=== PATIENT | female | born 1960 | race Caucasian/White ===

== ENCOUNTER 2019-09-12 10:46 | Inpatient (IN) ==
[2019-09-12] MEDS ORDERED: IOPAMIDOL 100 ML BOTTLE IV ONE (10:47)
[2019-09-12 11:44] LABS: POC Blood Urea Nitrogen 11 mg/dl (6-20); POC CO2 25 mmol/L (22-30); POC Calcium, Ionized 1.18 mmol/L (1.16-1.32); POC Chloride 104 mmol/L (96-108); POC Creatinine 0.9 mg/dl (0.6-1.1); POC Glucose, Random 97 mg/dL (70-105); POC Sodium 139 mmol/L (133-145)
[2019-09-12 12:00] LABS: Appearance,Urine CLEAR; Bacteria,Urine FEW /hpf (0); Bilirubin,Urine NEG (NEG); Color,Urine YELLOW; Culture Indicated,Urine YES; Glucose,Urine (UA) NEGATIVE (NEG); Ketones,Urine NEG (NEG); Leukocyte Esterase,Urine NEG /uL (NEG); Mucus,Urine MANY /hpf (0); Nitrate,Urine NEG (NEG); Protein,Urine 30 mg/dL (NEG); Specific Gravity,Urine 1.021 (1.000-1.035); Urine Blood 0.2 mg/dL (<0.03); Urine Hyaline Cast 35 /lpf (0-2); Urine RBC 13 /hpf (0-1); Urine Squamous Epithelial Cell 1 /hpf (0-4); Urine WBC 1 /hpf (0-4); Urobilinogen,Urine NEG (NEG)
[2019-09-12 12:17] LABS: Basophils # (Auto) 0.1 K/mcL (0.0-0.3); Basophils % (Auto) 1.7 % (0.0-2.0); Eosinophils # (Auto) 0.1 K/mcL (0.0-0.7); Eosinophils % (Auto) 1.3 % (0.0-7.0); Granulocytes % (Auto) 55.6 % (38.0-78.0); Hematocrit 41.5 % (36.0-48.0); Hemoglobin 13.7 g/dL (12.0-15.0); Lymphocytes # (Auto) 2.3 K/mcL (1.5-4.8); Lymphocytes % (Auto) 34.1 % (15.5-49.0); Mean Cell Volume 98.6 fL (80.0-100.0); Mean Corpuscular HGB Conc 33.1 g/dL (31.0-36.0); Mean Platelet Volume 9.1 fL (7.4-10.4); Monocytes # (Auto) 0.5 K/mcL (0.1-0.9); Monocytes % (Auto) 7.3 % (1.0-12.0); Platelet Count 267 K/mcL (140-440); RBC 4.21 M/mcL (4.00-5.20); Red Cell Distribution Width 13.2 % (11.5-14.5); WBC 6.7 K/mcL (4.5-11.0)
[2019-09-12 12:34] LABS: ALT/SGPT 12 U/l (0-40); AST/SGOT 14 U/l (0-37); Albumin/Globulin Ratio 1.6 (1.0-2.3); Alkaline Phosphatase 57 U/L (39-117); Bilirubin,Total 0.3 mg/dL (0.0-1.0); Blood Urea Nitrogen 12 mg/dl (6-20); Calcium 9.3 mg/dl (8.6-10.4); Carbon Dioxide 23 mmol/L (22-30); Chloride 103 mmol/L (96-108); Globulin 2.5 gm/dL (2.2-3.7); Glomerular Filtration Rate 70; Glucose 100 mg/dL (70-105)
--- NOTE | 2019-09-12 14:14 | Cat Scan Report ---
History: Abdominal pain in the right lower quadrant, status post prior hysterectomy and partial colon resection TECHNIQUE: The patient was imaged following oral and intravenous contrast scanning from the diaphragm to the symphysis pubis during the portal venous phase. Delayed excretory phase images were acquired of the upper abdomen. Sagittal and coronal reformats were created. The radiation exposure was limited using dose reduction technology. FINDINGS: There are a few scattered cysts in the liver. They measure up to 1 cm in size. No solid mass is seen in the liver. The gallbladder and bile ducts are normal. Spleen is normal in size and homogeneous. The pancreas is There are couple simple cysts in the right kidney. The largest is located centrally and measures 1.6 cm. No solid mass or hydronephrosis are present in either kidney. The aorta is mildly ectatic in the distal segment and there is atherosclerotic disease in the aorta and iliac arteries. Most of the colon has been surgically resected. The small intestine has been anastomosed to the superior left side of the sigmoid colon. There is no evidence of small bowel obstruction. The anastomosis appears normal. There is a row surgical sutures around the stump of the sigmoid. There is a large amount stool in the proximal portion of sigmoid colon. There appears to be an annular constricting lesion in the distal sigmoid colon above the rectum causing narrowing of the lumen. Distal to the constriction the distal sigmoid and rectum contain a normal amount of stool. No adenopathy or ascites are present. Bone windows show no lytic or blastic lesion. There is arthritis in the facet joints in the L5-S1 level. Uterus and ovaries are surgically resected. Urinary bladder appears normal. Comparison with the prior CT done on 04/25/19 shows the narrowing of the lumen of the sigmoid colon is a new finding. The fecal impaction in the sigmoid is also new. IMPRESSION: Annular constricting lesion in the distal sigmoid colon, causing partial distal large bowel obstruction. This could be a colon cancer. Sigmoidoscopy is recommended for further evaluation. Maribell Grace was called with results Interpreted and Authenticated by: Eric Dale 09/12/19
--- NOTE | 2019-09-12 14:55 | Emergency Department Note ---
Abdominal Pain HPI - General Chief Complaint: Abdominal Pain Stated Complaint: Abdominal Pain, Neck Pain Time Seen by Provider: 09/12/19 11:09 Mode of arrival: EMS - History of Present Illness HPI Narrative: 58-year-old female presents with a weeklong history of right lower quadrant abdominal pain. She is been seen Pauline Sherman and they have tried to order a CT outpatient but have not gotten insurance approval. States she is continuing to get worse instead of better. No fever or chills. No nausea, vomiting, or diarrhea. No cough or cold symptoms. Unsure her last bowel movement. Patient is extremely poor historian and seems to not be able to remember a whole lot. Associated symptoms: Denies: nausea, vomiting, diarrhea, fever, chills - Related Data Home Medications Medication Instructions Recorded Confirmed DULoxetine [Cymbalta] 60 mg PO DAILY 02/03/16 09/12/19 Albuterol Sulfate [Ventolin] 1 puff INH Q4HP PRN 01/31/17 09/12/19 buPROPion [Wellbutrin Xl] 300 mg PO DAILY 01/31/17 09/12/19 Citalopram [Celexa] 40 mg PO HS 05/01/19 09/12/19 Rosuvastatin Calcium [Crestor] 10 mg PO DAILY 05/01/19 09/12/19 levETIRAcetam [Keppra] 500 mg PO BID 05/01/19 09/12/19 Previous Rx's Medication Instructions Recorded ipratropium-albuterol 0.5 mg-3 3 ml INHALATION Q6H PRN #120 vials 05/06/15 mg(2.5 mg base)/3 mL nebulization soln Ondansetron [Zofran ODT] 4 mg SL Q4-6HP PRN #10 tablet 05/28/17 Allergies Allergy/AdvReac Type Severity Reaction Status Date / Time Penicillins Allergy Mild Vomiting Verified 03/05/18 10:43 acetaminophen [From Tylenol] AdvReac Vomiting Verified 03/05/18 10:43 codeine AdvReac Vomiting Verified 03/05/18 10:43 ibuprofen AdvReac Vomiting Verified 03/05/18 10:43 Review of Systems All systems ED: reviewed and negative except as stated. Abdominal Pain PMH - Past Medical History PMFSH Narrative: Patient is extremely poor historian and forgetful. Medical History Benzodiazepine (tranquilizer) overdose (Acute) Bite by animal (Acute) Cellulitis (Acute) Bronchitis (Acute) Medical history: Reports: arthritis, asthma, COPD, CVA, migraine, seizures, other (Lupus) Surgical history ED: Reports: other ("I only have 6 inches of colon left", can't elaborate) Psychiatric history: Reports: anxiety, depression, PTSD - Social History Smoking status: Current every day smoker Alcohol use: Reports: None Physical Exam Limitations: other (Forgetful) General appearance: alert Head: atraumatic, normocephalic Eye: Present: normal appearance. Absent: conjunctival injection ENT: Present: mucous membranes moist Chest: Present: symmetric chest wall rise Respiratory: Present: normal lung sounds bilaterally. Absent: respiratory distress, rales/crackles, accessory muscle use Cardiovascular: Present: regular rate, normal heart sounds Abdominal: Present: soft, tenderness (Right lower quadrant ), hypoactive bowel sounds. Absent: distention, guarding, rebound, mass Extremities: Present: normal inspection Back: Absent: CVA tenderness (R), CVA tenderness (L) Neurological: Present: alert, oriented X3 Psychiatric: Present: normal affect, normal mood Skin: Present: warm, dry, intact, normal color. Absent: rash, hives, cyanosis, diaphoresis Course Course Narrative: At 1440 I did speak with Chris Sherman. She would like us to call Dr. Romero who is on-call for GI as she is going to need scoped and she is unable to do so. At [address] did speak with Dr. Juarez. He would like us to admit the patient to observation if the hospitalist service is willing to accept her and control her pain and keep her on clear liquids and he will do a scope in the morning with enema prep only. (no need to be NPO) @ 1600 I did speak with hospitalist Dr. Larsen who agrees to accept this patient Vital Signs Temperature 98.1 F 09/12/19 10:47 Pulse Rate 84 09/12/19 10:47 Respiratory Rate 14 09/12/19 10:47 Blood Pressure 118/76 09/12/19 10:47 Pulse Oximetry (%) 95 09/12/19 10:47 Temperature 98.1 F 09/12/19 10:47 Pulse Rate 82 09/12/19 16:01 Respiratory Rate 17 09/12/19 16:01 Blood Pressure 100/89 09/12/19 16:01 Pulse Oximetry (%) 93 09/12/19 16:01 Abdominal Pain - Lab Data Lab results reviewed: Yes I reviewed the patient's lab results. Result diagrams: 09/12/19 11:28 09/12/19 11:28 Lab Results 09/12/19 09/12/19 09/12/19 Range/Units 11:00 11: 11:28 WBC 6.7 (4.5-11.0) K/mcL RBC 4.21 (4.00-5.20) M/mcL Hgb 13.7 (12.0-15.0) g/dL Hct 41.5 (36.0-48.0) % POC Hct 42.0 (36.0-48.0) % MCV 98.6 (80.0-100.0) fL MCH 32.6 (26.0-34.0) pg MCHC 33.1 (31.0-36.0) g/dL RDW 13.2 (11.5-14.5) % Plt Count 267 (140-440) K/mcL MPV 9.1 (7.4-10.4) fL Gran % 55.6 (38.0-78.0) % Lymph % (Auto) 34.1 (15.5-49.0) % [place] % (Auto) 7.3 (1.0-12.0) % Eos % (Auto) 1.3 (0.0-7.0) % Baso % (Auto) 1.7 (0.0-2.0) % Gran # 3.7 (1.8-8.0) K/mcL Lymph # (Auto) 2.3 (1.5-4.8) K/mcL [place] # (Auto) 0.5 (0.1-0.9) K/mcL Eos # (Auto) 0.1 (0.0-0.7) K/mcL Baso # (Auto) 0.1 (0.0-0.3) K/mcL POC Sodium 139 (133-145) mmol/L Sodium 138 (133-145) mmol/L POC Potassium 4.0 (3.3-5.1) mmol/L Potassium 4.0 (3.3-5.1) mmol/L POC Chloride 104 (96-108) mmol/L Chloride 103 (96-108) mmol/L Carbon Dioxide 23 (22-30) mmol/L POC Total CO2 25 (22-30) mmol/L Anion Gap 12.0 (8-16) POC BUN 11 (6-20) mg/dl BUN 12 (6-20) mg/dl Creatinine 0.9 (0.6-1.1) mg/dl POC Creatinine 0.9 (0.6-1.1) mg/dl GFR Calculation 70 Glucose 100 (70-105) mg/dL POC Glucose 97 (70-105) mg/dL Calcium 9.3 (8.6-10.4) mg/dl POC WB Ioniz Calcium 1.18 (1.16-1.32) mmol/L Total Bilirubin 0.3 (0.0-1.0) mg/dL AST 14 (0-37) U/l ALT 12 (0-40) U/l Alkaline Phosphatase 57 (39-117) U/L Total Protein 6.5 (5.9-8.4) gm/dL Albumin 4.0 (3.2-5.2) gm/dL Globulin 2.5 (2.2-3.7) gm/dL Albumin/Globulin Ratio 1.6 (1.0-2.3) Lipase 25 (7-60) U/L Urine Color Yellow Urine Appearance Clear Urine pH 6.0 (5.0-9.0) Ur Specific [place] 1.021 (1.000-1.035) Urine Protein 30 A (NEG) mg/dL Urine Glucose (UA) Negative (NEG) mg/dL Urine Ketones Neg (NEG) mg/dL Urine Occult Blood 0.2 A (<0.03) mg/dL Urine Nitrate Neg (NEG) Urine Bilirubin Neg (NEG) mg/dL Urine Urobilinogen Neg (NEG) mg/dL Ur Leukocyte Esterase Neg (NEG) /uL Urine RBC 13 H (0-1) /hpf Urine WBC 1 (0-4) /hpf Ur Squamous Epith Cells 1 (0-4) /hpf Urine Bacteria Few A (0) /hpf Hyaline Casts 35 H (0-2) /lpf Urine Mucus Many A (0) /hpf Ur Culture Indicated? Yes - Radiology Data Radiology results reviewed: Yes I reviewed the patient's radiology results. Disposition Pt seen by [facility]OVER/PA only: Yes Clinical Impression: Abdominal pain Disposition: Xfer As Outpt/Obs ([facility]) Condition: Fair Referrals: Molly Grigsby ARNP [Primary Care Provider] - Richard Romero MD [Physician] - Time of Disposition: 16:41
[2019-09-12] MEDS ORDERED: ONDANSETRON 4 MG/2 ML VIAL IV ONE (15:04)
[2019-09-12] MEDS: HYDROmorphone 2 MG/ML VIAL IV PRN ×2 (15:15→15:53)
--- NOTE | 2019-09-12 16:37 | Internal Med History&Physical ---
Medical - H&P: [facility] Patient information: Note initiated : 09/12/19 at 4:34 pm Service Date, if different from initiated Date: [] Patient: Marylin Hartman a 58 y/o F admitted on for Abdominal Pain, Neck Pain. Chief Complaint: [] History of present illness: Ms. Hartman is a 58 year old F Who presents with lower quadrant sharp abdominal pain for 2 weeks. Patient has history of Crohn's and has had multiple abdominal surgeries. She follows Pauline Sherman who is been trying to get an abdominal CT approved through insurance. Patient feels she is continued to get worse and thus came into the ED. She has had no nausea vomiting. She has chronic diarrhea. Her last bowel movement was this morning. She is a poor historian and her family admits this is chronic. CT abdomen pelvis was done which showed annular constricting lesion in the distal sigmoid colon causing partial distal large bowel obstruction. Case was discussed with general Sherman and subsequently Dr. Juarez who will perform endoscopy tomorrow and decide whether or not she needs surgical intervention. Review of Systems: Pertinent positives as above. Denies headache/fever/chills/nausea/vomiting/chest pain/cough/dyspnea. Remaining 10 point review of system reviewed negative Medical - H&P: PMH Medical history: Medical History Lupus Seizure disorder Cognitive impairment [place] CVA Depression/anxiety/PTSD Hyperlipidemia Crohn's COPD not on home oxygen Tobacco abuse Surgical history: Multiple abdominal surgeries,: Cranial surgery for hemorrhagic CVA Tonsillectomy Family: Mother COPD Father is healthy Social history: Patient smokes half pack of cigarettes per day Denies alcohol use Lives at home with her dad Medical - H&P: Meds Home Medications Medication Instructions Recorded Confirmed Type ipratropium-albuterol 0.5 mg-3 3 ml INHALATION Q6H PRN #120 vials 05/06/15 09/12/19 Rx mg(2.5 mg base)/3 mL nebulization soln DULoxetine [Cymbalta] 60 mg PO DAILY 02/03/16 09/12/19 History Albuterol Sulfate [Ventolin] 1 puff INH Q4HP PRN 01/31/17 09/12/19 History buPROPion [Wellbutrin Xl] 300 mg PO DAILY 01/31/17 09/12/19 History Ondansetron [Zofran ODT] 4 mg SL Q4-6HP PRN #10 tablet 05/28/17 09/12/19 Rx Citalopram [Celexa] 40 mg PO HS 05/01/19 09/12/19 History Rosuvastatin Calcium [Crestor] 10 mg PO DAILY 05/01/19 09/12/19 History levETIRAcetam [Keppra] 500 mg PO BID 05/01/19 09/12/19 History Allergies Allergy/AdvReac Type Severity Reaction Status Date / Time Penicillins Allergy Mild Vomiting Verified 03/05/18 10:43 acetaminophen [From Tylenol] AdvReac Vomiting Verified 03/05/18 10:43 codeine AdvReac Vomiting Verified 03/05/18 10:43 ibuprofen AdvReac Vomiting Verified 03/05/18 10:43 Medical - H&P: Exam - Constitutional Vitals: Temp Pulse Resp BP Pulse Ox 98.1 F 82 17 100/89 93 09/12/19 10:47 09/12/19 16:01 09/12/19 16:01 09/12/19 16:01 09/12/19 16:01 Exam: General: Alert, Awake, No acute Distress Eyes/N/T: EOMI, PEERL, DMM Head/Neck: neck supple, normocephalic atraumatic CV: RRR, No murmurs, normal s1/s2 Pulm: Clear b/l, no wheezing/rhonchi/rales Abd: soft, +BS x4 Ext: no clubbing/cyanosis/edema Neuro: Alert, no focal deficits, moves all extremities, CN 2-12 grossly intact, symmetrical strength b/l upper/lower, sensations intact b/l upper/lower Skin: warm/dry Medical - H&P: Reslt - Labs CBC & Chem 7: 09/12/19 11:28 09/12/19 11:28 Labs: Short CBC 09/12/19 Range/Units 11:28 WBC 6.7 (4.5-11.0) K/mcL Hgb 13.7 (12.0-15.0) g/dL Hct 41.5 (36.0-48.0) % Plt Count 267 (140-440) K/mcL BMP 09/12/19 11:28 Sodium 138 Potassium 4.0 Chloride 103 Carbon Dioxide 23 BUN 12 Creatinine 0.9 Glucose 100 Calcium 9.3 Liver Function 09/12/19 Range/Units 11:28 Total Bilirubin 0.3 (0.0-1.0) mg/dL AST 14 (0-37) U/l ALT 12 (0-40) U/l Alkaline Phosphatase 57 (39-117) U/L Albumin 4.0 (3.2-5.2) gm/dL Urine 09/12/19 Range/Units 11:00 Urine Color Yellow Urine Appearance Clear Urine pH 6.0 (5.0-9.0) Ur Specific [place] 1.021 (1.000-1.035) Urine Protein 30 A (NEG) mg/dL Urine Glucose (UA) Negative (NEG) mg/dL - Impressions CT abdomen pelvis with annular constricting lesion in the distal sigmoid colon causing partial large bowel obstruction Medical - H&P: A/P - Narrative A/P Narrative: A: *pLBO with annular constricting lesion distal sigmoid: *Crohn's *COPD: *Tobacco abuse: *Seizure d/o: *Cognitive impairment, per family, very forgetful: *Depression/anxiety/PTSD *h/o hemorrhagic CVA: * P: -Dr. Romero for endoscopy tomorrow; will determine if surgical intervention is needed -Clear liquid diet -Continue home medications -CEA pending - -Continue home psych and seizure medications -Smoking cessation counseling -ppx: Lovenox full code
[2019-09-12] MEDS ORDERED: IPRATROPIUM/ALBUTEROL 3 ML AMPUL.NEB NEB PRN (17:24)
[2019-09-12] MEDS ORDERED: ALBUTEROL SULFATE 1 PUFF INHALER INH PRN (17:24)
[2019-09-12] MEDS ORDERED: ONDANSETRON 4 MG/2 ML VIAL IV PRN (17:24)
[2019-09-12] MEDS ORDERED: PROMETHAZINE 25 MG/ML VIAL IV PRN (17:24)
[2019-09-12] MEDS ORDERED: ACETAMINOPHEN 325 MG TABLET PO PRN (17:24)
[2019-09-12] MEDS ORDERED: POLYETHYLENE GLYCOL 3350 17 GM PACKET PO PRN (17:24)
[2019-09-12] MEDS: HYDROcodone/APAP 5/325MG TABLET PO PRN (18:44)
[2019-09-12] MEDS: CITALOPRAM 20 MG TABLET PO SCH (20:21)
[2019-09-12] MEDS: levETIRAcetam 500 MG TABLET PO SCH (20:21)
[2019-09-12] MEDS: DOCUSATE SODIUM 100 MG CAPSULE PO SCH (20:21)
[2019-09-12] MEDS ORDERED: BISACODYL 10 MG SUPP.RECT PR ONE (21:00)
[2019-09-12] MEDS: 0.9 % SODIUM CHLORIDE 10 ML SYRINGE IV SCH (21:08)
[2019-09-13] MEDS: 0.9 % SODIUM CHLORIDE 10 ML SYRINGE IV SCH ×3 (05:27→21:52)
[2019-09-13 06:32] LABS: Basophils # (Auto) 0.1 K/mcL (0.0-0.3); Basophils % (Auto) 1.1 % (0.0-2.0); Eosinophils # (Auto) 0.2 K/mcL (0.0-0.7); Eosinophils % (Auto) 2.7 % (0.0-7.0); Granulocytes % (Auto) 42.3 % (38.0-78.0); Hematocrit 39.5 % (36.0-48.0); Hemoglobin 13.1 g/dL (12.0-15.0); Lymphocytes # (Auto) 2.8 K/mcL (1.5-4.8); Lymphocytes % (Auto) 45.7 % (15.5-49.0); Mean Cell Volume 98.9 fL (80.0-100.0); Mean Corpuscular HGB Conc 33.3 g/dL (31.0-36.0); Mean Platelet Volume 8.9 fL (7.4-10.4); Monocytes # (Auto) 0.5 K/mcL (0.1-0.9); Monocytes % (Auto) 8.2 % (1.0-12.0); Platelet Count 259 K/mcL (140-440); RBC 3.99 M/mcL (4.00-5.20); Red Cell Distribution Width 13.2 % (11.5-14.5); WBC 6.3 K/mcL (4.5-11.0)
[2019-09-13 07:04] LABS: ALT/SGPT 11 U/l (0-40); AST/SGOT 14 U/l (0-37); Albumin 4.1 gm/dL (3.2-5.2); Albumin/Globulin Ratio 1.9 (1.0-2.3); Alkaline Phosphatase 54 U/L (39-117); Bilirubin,Direct < 0.2 mg/dL (0.0-0.3); Bilirubin,Total 0.4 mg/dL (0.0-1.0); Blood Urea Nitrogen 8 mg/dl (6-20); Carbon Dioxide 28 mmol/L (22-30); Chloride 102 mmol/L (96-108); Globulin 2.2 gm/dL (2.2-3.7); Glomerular Filtration Rate 96; Glucose 85 mg/dL (70-105); Lactate Dehydrogenase 182 U/L (94-250); Phosphorous 3.5 mg/dL (2.7-4.5); Triglycerides 74 mg/dl (<150); Uric Acid 2.8 mg/dL (2.5-8.0)
--- NOTE | 2019-09-13 07:11 | Internal Med Progress Note ---
Medical - PN: Subj Patient information: Note initiated : 09/13/19 at 7:08 am Service Date, if different from initiated Date: [] Patient: Marylin Hartman a 58 y/o F admitted on 09/12/19 for Abdominal Pain, Neck Pain. Chief Complaint: [] Interval history: Ms. Hartman is a 58 year old F Who presents with lower quadrant sharp abdominal pain for 2 weeks. Patient has history of Crohn's and has had multiple abdominal surgeries. She follows Pauline Sherman who is been trying to get an abdominal CT approved through [employer]. Patient feels she is continued to get worse and thus came into the ED. She has had no nausea vomiting. She has chronic diarrhea. Her last bowel movement was this morning. She is a poor historian and her family admits this is chronic. CT abdomen pelvis was done which showed annular constricting lesion in the distal sigmoid colon causing partial distal large bowel obstruction. Case was discussed with Pauline Sherman and subsequently Dr. Romero who will perform endoscopy tomorrow and decide whether or not she needs surgical intervention. 09/13 Slept okay. Abdominal pain better controlled. No events overnight or new complaints. Plan for endoscopy by Dr. Romero today. CEA low. chronic diarrhea Review of Systems: denies headache/fever/chills/nausea/vomiting/chest pain/cough/dyspnea. Otherwise see above. - Constitutional Vitals: Vital Signs Temp Pulse Resp BP Pulse Ox 97.8 F 60 16 109/67 95 09/13/19 04:00 09/13/19 04:00 09/13/19 04:00 09/13/19 04:00 09/13/19 04:00 Period Temp Pulse Resp BP Sys/Beckford Pulse Ox Last 24 Hr 97.5 F-99.6 F 60-92 11-36 94-148/53-102 93-98 Intake and Output 09/12/19 09/13/19 09/13/19 21:59 05:59 13:59 Output Total 600 Balance -600 Weight 51.165 kg Intake & Output: Intake & Output 09/12/19 09/13/19 09/13/19 21:59 05:59 13:59 Output Total 600 Balance -600 Weight 51.165 kg Output: Void Amount 600 Other: Urine Appearance Clear Urine Color Bright Yellow Urine Odor Normal Stool Size Smear Exam: General: Alert, Awake, No acute Distress Eyes/N/T: EOMI, Head/Neck: neck supple, CV: RRR, No murmurs, Pulm: Clear b/l, no wheezing/rhonchi/rales Abd: soft, mild TTP lower quadrants, +BS x4 Ext: no clubbing/cyanosis/edema Neuro: Alert, no focal deficits, moves all extremities, Skin: warm/dry Medical - PN: Obj Da - Labs CBC & Chem 7: 09/13/19 05:18 09/13/19 05:18 Labs: Abnormal Lab Results 09/13/19 09/12/19 05:18 11:00 RBC 3.99 L Urine Protein 30 A Urine Occult Blood 0.2 A Urine RBC 13 H Urine Bacteria Few A Hyaline Casts 35 H Urine Mucus Many A Meds: Medications Acetaminophen (Tylenol) 650 mg PO Q6HP PRN; Protocol PRN Reason: Per Pain Protocol/Fever > 101 Hydrocodone Bitart/Acetaminophen ([place] 5/325mg) 1 tab PO Q4HP PRN; Protocol PRN Reason: Per Pain Protocol Last Admin: 09/12/19 18:44 Dose: 1 tab Documented by: Albuterol Sulfate (Ventolin) 1 puff INH Q4HP PRN PRN Reason: diffiuclty breathing Albuterol/Ipratropium (Duoneb) 3 ml NEB Q6HP PRN PRN Reason: asthma Bupropion HCl (Wellbutrin Xl) 300 mg PO DAILY [facility] Citalopram Hydrobromide (Celexa) 40 mg PO HS [facility] Last Admin: 09/12/19 20:21 Dose: 40 mg Documented by: Docusate Sodium (Colace) 100 mg PO BID [facility] Last Admin: 09/12/19 20:21 Dose: 100 mg Documented by: Duloxetine HCl (Cymbalta) 60 mg PO DAILY [facility] Enoxaparin Sodium (Lovenox) 40 mg SQ DAILY [facility] Levetiracetam (Keppra) 500 mg PO BID [facility] Last Admin: 09/12/19 20:21 Dose: 500 mg Documented by: Ondansetron HCl (Zofran) 4 mg IV Q6HP PRN PRN Reason: Nausea And Vomiting Polyethylene Glycol (Miralax) 17 gm PO DAILYP PRN PRN Reason: Constipation Promethazine HCl (Phenergan) 12.5 mg IV Q6HP PRN PRN Reason: Nausea And Vomiting Sodium Chloride (Saline Flush) 10 ml IV Q8 [facility] Last Admin: 09/13/19 05:27 Dose: 10 ml Documented by: Medical - PN: A/P - Time Spent With Patient Total time spent is greater than 50% in coordination of care (as documented) at patient's floor/unit and/or counseling patient: - Narrative A/P Narrative: A: *pLBO with annular constricting lesion distal sigmoid: -CEA low *Crohn's: follows with Pauline Sherman *COPD: *Tobacco abuse: *Seizure d/o: *Cognitive impairment, per family (h/o TBI), very forgetful: *Depression/anxiety/PTSD *h/o hemorrhagic CVA: * P: -Dr. Romero for endoscopy today; will determine if surgical intervention is needed -Clear liquid diet -Continue home medications - -Continue home psych and seizure medications -Smoking cessation counseling -ppx: Lovenox full code Medical - PN: Qual - Stroke Symptom Onset Unknown: No - VTE Deep Vein Thrombosis/Pulmonary Embolism Present on Admission: No
[2019-09-13] MEDS ORDERED: 0.9 % SODIUM CHLORIDE 500 ML IV ONE (08:12)
[2019-09-13] MEDS: buPROPion 150 MG TAB.XL.24H PO SCH (08:27)
[2019-09-13] MEDS: DULoxetine 30 MG CAPSULE PO SCH (08:27)
[2019-09-13] MEDS: levETIRAcetam 500 MG TABLET PO SCH ×2 (08:28→21:51)
[2019-09-13] MEDS: DOCUSATE SODIUM 100 MG CAPSULE PO SCH ×2 (08:28→21:52)
[2019-09-13] MEDS: HYDROcodone/APAP 5/325MG TABLET PO PRN (08:28)
[2019-09-13] MEDS: ENOXAPARIN 40 MG/0.4 ML SYRINGE SQ SCH (08:31)
[2019-09-13] MEDS ORDERED: KETAMINE HCL 50 MG/ML ML IV PRN (16:12)
[2019-09-13] MEDS ORDERED: MIDAZOLAM 2 MG/2 ML VIAL IV SCH (16:15)
[2019-09-13] MEDS ORDERED: PROPOFOL 200 MG/20 ML VIAL IV SCH (16:15)
[2019-09-13] MEDS ORDERED: PROPOFOL 40 ML IV ONE (16:31)
[2019-09-13] MEDS ORDERED: MIDAZOLAM 2 MG/2 ML VIAL ONE (16:31)
[2019-09-13] MEDS: CITALOPRAM 20 MG TABLET PO SCH (21:51)
--- NOTE | 2019-09-14 07:00 | Internal Med Progress Note ---
Medical - PN: Subj Patient information: Note initiated : 09/14/19 at 6:58 am Service Date, if different from initiated Date: [] Patient: Marylin Hartman a 58 y/o F admitted on 09/12/19 for Abdominal Pain, Neck Pain. Chief Complaint: [] Interval history: Ms. Hartman is a 58 year old F Who presents with lower quadrant sharp abdominal pain for 2 weeks. Patient has history of Crohn's and has had multiple abdominal surgeries. She follows Pauline Sherman who is been trying to get an abdominal CT approved through [employer]. Patient feels she is continued to get worse and thus came into the ED. She has had no nausea vomiting. She has chronic diarrhea. Her last bowel movement was this morning. She is a poor historian and her family admits this is chronic. CT abdomen pelvis was done which showed annular constricting lesion in the distal sigmoid colon causing partial distal large bowel obstruction. Case was discussed with Pauline Sherman and subsequently Dr. Romero who will perform endoscopy tomorrow and decide whether or not she needs surgical intervention. 09/13 Slept okay. Abdominal pain better controlled. No events overnight or new complaints. Plan for endoscopy by Dr. Romero today. CEA low. chronic diarrhea 09/14 Had colonoscopy yesterday with ulcerated inflammatory tissue. No syncope findings did not strongly suggest cancer but biopsies were taken. Plan from GI perspective was to await biopsies and if negative then the possibly start mesalamine. Patient does have a history of Crohn's. Review of Systems: denies headache/fever/chills/nausea/vomiting/chest pain/cough/dyspnea. Otherwise see above. - Constitutional Vitals: Vital Signs Temp Pulse Resp BP Pulse Ox 98.2 F 66 16 100/58 95 09/14/19 03:59 09/14/19 03:59 09/14/19 03:59 09/14/19 03:59 09/14/19 03:59 Period Temp Pulse Resp BP Sys/Beckford Pulse Ox Last 24 Hr 97.8 F-98.6 F 58-70 16-20 99-127/58-76 93-100 Intake and Output 09/13/19 09/14/19 09/14/19 21:59 05:59 13:59 Intake Total 800 Balance 800 Weight 49.85 kg Intake & Output: Intake & Output 09/13/19 09/14/19 09/14/19 21:59 05:59 13:59 Intake Total 800 Balance 800 Weight 49.85 kg Intake: Oral 800 Other: Urine Appearance Clear Urine Odor Normal # Voids 3 # Bowel Movements 4 Exam: General: Alert, Awake, No acute Distress Eyes/N/T: EOMI, Head/Neck: neck supple, CV: RRR, No murmurs, Pulm: Clear b/l, no wheezing/rhonchi/rales Abd: soft, mild TTP lower quadrants, +BS x4 Ext: no clubbing/cyanosis/edema Neuro: Alert, no focal deficits, moves all extremities, Skin: warm/dry Medical - PN: Obj Da - Labs CBC & Chem 7: 09/13/19 05:18 09/13/19 05:18 Labs: Abnormal Lab Results 09/13/19 09/12/19 05:18 11:00 RBC 3.99 L Urine Protein 30 A Urine Occult Blood 0.2 A Urine RBC 13 H Urine Bacteria Few A Hyaline Casts 35 H Urine Mucus Many A Meds: Medications Acetaminophen (Tylenol) 650 mg PO Q6HP PRN; Protocol PRN Reason: Per Pain Protocol/Fever > 101 Hydrocodone Bitart/Acetaminophen ([place] 5/325mg) 1 tab PO Q4HP PRN; Protocol PRN Reason: Per Pain Protocol Last Admin: 09/13/19 08:28 Dose: 1 tab Documented by: Albuterol Sulfate (Ventolin) 1 puff INH Q4HP PRN PRN Reason: diffiuclty breathing Albuterol/Ipratropium (Duoneb) 3 ml NEB Q6HP PRN PRN Reason: asthma Bupropion HCl (Wellbutrin Xl) 300 mg PO DAILY [facility] Last Admin: 09/13/19 08:27 Dose: 300 mg Documented by: Citalopram Hydrobromide (Celexa) 40 mg PO HS [facility] Last Admin: 09/13/19 21:51 Dose: 40 mg Documented by: Docusate Sodium (Colace) 100 mg PO BID [facility] Last Admin: 09/13/19 21:52 Dose: 100 mg Documented by: Duloxetine HCl (Cymbalta) 60 mg PO DAILY [facility] Last Admin: 09/13/19 08:27 Dose: 60 mg Documented by: Enoxaparin Sodium (Lovenox) 40 mg SQ DAILY [facility] Last Admin: 09/13/19 08:31 Dose: 40 mg Documented by: Levetiracetam (Keppra) 500 mg PO BID [facility] Last Admin: 09/13/19 21:51 Dose: 500 mg Documented by: Ondansetron HCl (Zofran) 4 mg IV Q6HP PRN PRN Reason: Nausea And Vomiting Polyethylene Glycol (Miralax) 17 gm PO DAILYP PRN PRN Reason: Constipation Promethazine HCl (Phenergan) 12.5 mg IV Q6HP PRN PRN Reason: Nausea And Vomiting Sodium Chloride (Saline Flush) 10 ml IV Q8 [facility] Last Admin: 09/13/19 21:52 Dose: 10 ml Documented by: Medical - PN: A/P - Time Spent With Patient Total time spent is greater than 50% in coordination of care (as documented) at patient's floor/unit and/or counseling patient: - Narrative A/P Narrative: A: *pLBO with annular constricting lesion distal sigmoid: -CEA low -Colonoscopy findings with ulcerated tissue findings not strongly suggestive cancer but biopsies taken. Will await biopsy results and if negative possibly start mesalamine per GI. *Crohn's: follows with Pauline Sherman *COPD: *Tobacco abuse: *Seizure d/o: *Cognitive impairment, per family (h/o TBI), very forgetful: *Depression/anxiety/PTSD *h/o hemorrhagic CVA: * P: -Dr. Romero for endoscopy; will determine if surgical intervention is needed -Clear liquid diet -Continue home medications - -Continue home psych and seizure medications -Smoking cessation counseling -ppx: Lovenox full code Medical - PN: Qual - Stroke Symptom Onset Unknown: No - VTE Deep Vein Thrombosis/Pulmonary Embolism Present on Admission: No
--- NOTE | 2019-09-14 08:29 | Operative Note ---
DATE OF OPERATION: 09/13/2019 PREPROCEDURE DIAGNOSIS: Annular constricting lesions sigmoid colon with proximal dilation, probably colon cancer. POSTPROCEDURE DIAGNOSES: 1. Ulcerated inflammatory tissue at anastomosis. Rule out, but doubt cancer. 2. Hemorrhoids. 3. Status post resection, most of the colon, one portion in 1985, one portion in 1988. The patient stated this was because of ''constipation'' associated with ''nerve damage.'' PROCEDURE: ''Colonoscopy with biopsy.'' INSTRUMENT USED: Olympus CRISTIAN [id number] colonoscope. SPECIMENS OBTAINED: Multiple biopsies from the two ulcers in the distal new terminal ileum and biopsies from the inflammatory ulcerated mass at the anastomosis. INDICATIONS FOR PROCEDURE: The patient is a 58-year-old lady who for several months has had some abdominal pain and perhaps worse trouble with constipation. She stated many years ago prior to her surgery she would have a bowel movement once a month when she had a menstrual period. She was told she had some nerve damage to the colon. Some of the colon was removed in 1985. Additional portion of the colon was removed in 1988. She thought she just had a few inches of colon (the anastomosis was at around 11 or 12 cm from the anal sphincter. Because of the severity of the pain in the abdomen, she was seen in the emergency department. CAT scan was done which showed an annular constricting mass lesion sigmoid colon with proximal dilation. Flexible sigmoidoscopy or colonoscopy is indicated. INFORMED CONSENT: Time of informed consent was 17:31. The procedure was reviewed with the patient. The patient had no further questions and accepts the risks and benefits thereof. One of the risks that were discussed included . Additional risks that were also discussed included bleeding, reaction to medication, possible perforation and possible need for surgery. IV MEDICATIONS USED: Versed 2 mg and propofol 260. FINDINGS: RECTUM: Hemorrhoids were noted. Despite ordering enemas as part of the bowel prep there was still poor fecal matter. The area was washed frequently and suctioned. Eventually the tissue was cleaned enough so I could see reasonably well. The anastomosis was eventually identified. This is estimated to be around 11 or 12 cm from the anal sphincter. There was significant erythema, edema, and friable tissue at the anastomosis. Much of this was ulcerated. This did not strongly suggest cancer. I lean against cancer but cancer cannot be ruled out. There was deformity around the anastomosis. The new terminal ileum was inspected for about 20 to 30 cm. In the last few centimeters there were two 6 to 8 mm round ulcers noted. Biopsies were taken. The rest of the terminal ileum that was visualized appeared normal. DISCUSSION AND RECOMMENDATIONS: I would limit the diet to liquid or low residue until we have further information and treatment started or a plan. Pathology report should be awaited. If there is cancer, she will probably benefit from surgery. If there is no cancer one may consider mesalamine and a repeat endoscopy in a few months to evaluate status of healing. Pathology report may suggest some treatment may be better than others. Since this is many years from the surgery and the anastomosis it is less likely to be ischemic. SEDATION TIME: 17:42 to 18:39. Please refer to the preprocedure nurse's notes, procedure flowsheet, procedure record, and post-procedure assessment for details of the sedation including the pre-, intra-, and post-service work. CRD:kh Job ID: [id number] Doc ID: [id number] Richard Roberts
[2019-09-14] MEDS: DULoxetine 30 MG CAPSULE PO SCH (09:02)
[2019-09-14] MEDS: DOCUSATE SODIUM 100 MG CAPSULE PO SCH (09:02)
[2019-09-14] MEDS: buPROPion 150 MG TAB.XL.24H PO SCH (09:03)
[2019-09-14] MEDS: levETIRAcetam 500 MG TABLET PO SCH (09:03)
[2019-09-14] MEDS: 0.9 % SODIUM CHLORIDE 10 ML SYRINGE IV SCH (09:03)
[2019-09-14] MEDS: ENOXAPARIN 40 MG/0.4 ML SYRINGE SQ SCH (09:03)
--- NOTE | 2019-09-14 09:10 | Discharge Summary ---
Medical - DS: Prov Patient information: Note initiated : 09/14/19 at 9:08 am Service Date, if different from initiated Date: [] Patient: Marylin Hartman a 58 y/o F admitted on 09/12/19 for Abdominal Pain, Neck Pain. Chief Complaint: [] Date of admission: 09/12/19 16:56 Discharge date: 09/14/19 Primary care physician: Molly Grigsby Consults: 09/12/19 Consult to Physician [CONS] Stat Comment: Consulting Provider: Ba Larsen Reason For Exam: Physician to Consult 09/12/19 17:24 Consult to Physician [CONS] Routine Comment: Consulting Provider: Richard Romero Reason For Exam: Physician to Consult Medical - DS: Meds - Discharge Medications Active and Home Medications: Home Medications ipratropium-albuterol 0.5 mg-3 mg(2.5 mg base)/3 mL nebulization soln 3 ml INHALATION Q6H PRN #120 vials 05/06/15 [Rx Confirmed 09/12/19 Last Taken 08/31/16] DULoxetine [Cymbalta] 60 mg PO DAILY 02/03/16 [History Confirmed 09/12/19 Last Taken 08/31/16] Albuterol Sulfate [Ventolin] 1 puff INH Q4HP PRN 01/31/17 [History Confirmed 09/12/19 Last Taken Unknown] buPROPion [Wellbutrin Xl] 300 mg PO DAILY 01/31/17 [History Confirmed 09/12/19 Last Taken Unknown] Ondansetron [Zofran ODT] 4 mg SL Q4-6HP PRN #10 tablet 05/28/17 [Rx Confirmed 09/12/19 Last Taken Unknown] Citalopram [Celexa] 40 mg PO HS 05/01/19 [History Confirmed 09/12/19 Last Taken Unknown] Rosuvastatin Calcium [Crestor] 10 mg PO DAILY 05/01/19 [History Confirmed 09/12/19 Last Taken Unknown] levETIRAcetam [Keppra] 500 mg PO BID 05/01/19 [History Confirmed 09/12/19 Last Taken Unknown] Medical - DS: Hosp Hospital Course: Ms. Hartman is a 58 year old F Who presents with lower quadrant sharp abdominal pain for 2 weeks. Patient has history of Crohn's and has had multiple abdominal surgeries. She follows Pauline Sherman who is been trying to get an abdominal CT approved through insurance. Patient feels she is continued to get worse and thus came into the ED. She has had no nausea vomiting. She has chronic diarrhea. Her last bowel movement was this morning. She is a poor historian and her family admits this is chronic. CT abdomen pelvis was done which showed annular constricting lesion in the distal sigmoid colon causing partial distal large bowel obstruction. Case was discussed with Pauline Sherman and subsequently Dr. Romero who will perform endoscopy tomorrow and decide whether or not she needs surgical intervention. 09/13 Slept okay. Abdominal pain better controlled. No events overnight or new complaints. Plan for endoscopy by Dr. Romero today. CEA low. chronic diarrhea 09/14 Had colonoscopy yesterday with ulcerated inflammatory tissue. No syncope findings did not strongly suggest cancer but biopsies were taken. Plan from GI perspective was to await biopsies and if negative then the possibly start mesalamine. Patient does have a history of Crohn's. Here for discharge. Follow-up with GI closely Discharge diagnosis: Ulcerative colitis with stricturing Secondary discharge diagnosis: Crohn's COPD tobacco abuse seizure disorder depression anxiety - Time Spent with Patient Total time spent providing and/or coordinating discharge services: Greater than 30 minutes Medical - DS: Exam - Constitutional Vitals: Vital Signs Temp Pulse Pulse Resp BP BP Pulse Ox 09/14/19 07:07 99.1 F H 20 96/59 95 09/14/19 03:59 98.2 F 66 16 100/58 95 09/13/19 22:51 98.3 F 70 18 111/63 93 09/13/19 19:33 98.2 F 70 16 99/60 99 09/13/19 18:31 97.9 F 63 18 104/69 100 09/13/19 17:38 98.6 F 68 20 126/76 95 09/13/19 16:00 98.6 F 70 18 127/68 95 09/13/19 12:00 97.8 F 59 L 16 114/67 93 Intake and Output 09/13/19 09/14/19 09/14/19 21:59 05:59 13:59 Intake Total 800 Balance 800 Intake: Oral 800 Other: Urine Appearance Clear Urine Odor Normal # Voids 3 # Bowel Movements 4 Weight 49.85 kg Medical - DS: A/P - Patient/Caregiver Discharge Instructions Activity: increase activity as tolerated Diet: Full Liquid (advance as tolerated) - Follow up Plan Follow up with: Richard Romero MD [Physician] - Molly Grigsby ARNP [Primary Care Provider] - Pauline Sherman ARNP [Nurse Practitioner] - Disposition: Home, Self-Care Prognosis: Fair Rehab Potential: Fair Overall status at discharge: patient is back to baseline Medical - DS: Qual - VTE Deep Vein Thrombosis/Pulmonary Embolism Present on Admission: No
--- NOTE | 2019-09-18 09:48 | Surgical Pathology Report ---
HISTOLOGY SPECIMEN MICROSCOPIC DIAGNOSIS SPECIMEN A - SMALL BOWEL, TERMINAL ILEUM, BIOPSY: -- SMALL BOWEL MUCOSA WITH ULCERATION, ACUTE INFLAMMATION AND INFLAMMATORY DEBRIS. -- NO GRANULOMAS, DYSPLASIA OR MALIGNANCY IDENTIFIED. SPECIMEN B - COLON, 11 cm/ANASTOMOSIS, BIOPSY: -- ULCERATED COLONIC MUCOSA WITH ACUTE INFLAMMATION AND INFLAMMATORY DEBRIS, SEE COMMENT. -- NO GRANULOMAS, DYSPLASIA OR MALIGNANCY IDENTIFIED. (RLF:adj) COMMENT: The colonic biopsies (specimen B) show ulcerated colonic mucosa with nonspecific active colitis, reactive epithelial changes and inflammatory debris. Granulomas, acute cryptitis and crypt abscesses are not identified. There is no morphologic or immunohistochemical evidence (pancytokeratin, CD34, CD68) of invasive carcinoma. Clinical and endoscopic correlation are suggested. MICROSCOPIC DESCRIPTION Some of the tests reported here may not have been cleared or approved by the [place] Food and Drug Administration (FDA). However, the FDA has determined that such clearance or approval is not necessary. Pursuant to the requirements of CLIA, this laboratory has established and verified the accuracy and precision of all tests, and additional information about these tests is available upon request. All technical controls are adequate. CLINICAL HISTORY S/P resection most of colon 1988; CT shows lesion. PROCEDURAL IMPRESSION Ulcerated inflammatory tissue; anastomosis; rule out, but doubt, cancer; hemorrhoid. GROSS DESCRIPTION Specimen A: Received in formalin labeled distal terminal ileum, are six cody tissue fragments from less than 0.1 to 0.6 cm. Entirely submitted - one cassette. Specimen B: Received in formalin labeled 11 cm anastomosis rule out CA, are multiple cody tissue fragments from less than 0.1 to 0.6 cm. Entirely submitted - one cassette. (RINB:anna marie) Electronically Signed by: Deb Benjamin M.D.
== END 2019-09-14 10:35 | disposition home or self-care (01) | DRG 387 ==
LOC: ED 10:46 → MEDSUR 16:56
PROVIDERS: ADMIT Internal Medicine; ATTEND Internal Medicine